=== PATIENT | female | born 1970 | race Caucasian/White ===

== ENCOUNTER → 2016-05-10 | Outpatient (CLI) | payer BC ==
[~2016-05-10] MED LIST: CALC-211 PO; CETI10TA84 PO; EPP3/2 IM; ESTR1TAB2 PO; MULTTAB58 PO
--- NOTE | 2016-05-11 12:39 | MAMMOGRAPHY REPORT ---
BILATERAL DIGITAL SCREENING MAMMOGRAM TOMOSYNTHESIS WITH CAD: 05/10/2016 CLINICAL HISTORY: Routine screening. TECHNIQUE: Breast tomosynthesis in addition to standard 2D mammography was performed. Current study was also evaluated with a Computer Aided Detection (CAD) system. COMPARISON: Comparison is made to exams dated: 05/08/2015 mammogram, 03/28/2013 mammogram, 05/10/2014 m ammogram, and 03/09/2012 mammogram - [facility]. BREAST COMPOSITION: The tissue of both breasts is heterogeneously dense, which may obscure small ma sses. FINDINGS: There are diffuse bilateral round and punctate benign-appearing microcalcifications and al so a few benign coarse calcifications in the breasts. No suspicious mass, architectural distortion or cluster of new suspicious microcalcifications is seen. IMPRESSION: ACR BI-RADS CATEGORY 1: NEGATIVE There is no mammographic evidence of malignancy. A 1 year screening mammogram is recommended. The p atient will receive written notification of the results. Approximately 10% of breast cancers are not detected with mammography. A negative mammographic repor t should not delay biopsy if a clinically suggestive mass is present. Camila Guo M.D. ay/:05/10/2016 16:34:08 Rectification Printer: Bhavya MCKENZIE(Alda)(M), [facility] letter sent: Normal 1/2 BI-RADS Code: ACR BI-RADS Category 1: Negative
== END | disposition home or self-care (01) ==
LOC: C.MAMM 08:24
PROVIDERS: ATTEND Obstetrics & Gynecology
DX: Z12.31 Encounter for screening mammogram for malignant neoplasm of breast (principal)

== ENCOUNTER → 2017-04-22 | Outpatient (CLI) | payer BC ==
[~2017-04-22] MED LIST changes: +OPTIRAY 320 IV PRN
[2017-04-22 09:53] LABS: BLOOD UREA NITROGEN 15 mg/dl (7-18); CREATININE 0.74 mg/dl (0.60-1.20)
--- NOTE | 2017-04-22 12:00 | DIAGNOSTIC IMAGING REPORT ---
ABDOMEN AND PELVIS CT WITH IV AND ORAL CONTRAST CT DOSE: 294.66 mGy.cm HISTORY: Acute generalized abdominal pain and bloating DIFFUSED ABD PAIN, EPIGASTRIC PAIN, BLOATING TECHNIQUE: Multiaxial CT images of the abdomen and pelvis were performed following the use of intravenous and oral contrast. A dose lowering technique was utilized adhering to the principles of ALARA. COMPARISON STUDY: None. FINDINGS: Lung bases are generally clear. No pneumatosis or pneumoperitoneum identified. Imaged inferior cardiac chambers are unremarkable. Liver, spleen, gallbladder, pancreas and adrenal glands are within normal limits. Low attenuating 5 mm lesion of the interpolar left kidney is too small to characterize however suggest renal cysts. External renal pelvis noted on the left. No renal calculi or hydronephrosis. Ureters and urinary bladder are within normal limits. Prior hysterectomy. No adnexal mass lesions identified. The aorta is normal in course and caliber. No bulky adenopathy. There is no bowel obstruction or focal bowel wall thickening identified. Moderate stool volume throughout the colon. Appendix is contrast-filled and appears noninflamed. Diastases recti with tiny fat filled periumbilical hernia. Soft tissues are unremarkable. Bones appear intact. No significant degenerative changes of the spine. IMPRESSION: 1. Moderate stool volume throughout the colon suggest constipation. No bowel obstruction or focal bowel wall thickening. 2. No evidence of acute appendicitis. 3. Prior hysterectomy. Electronically signed by: Wily Mora M.D. 04/22/2017 11:59 AM Dictated Date/Time: 04/22/2017 11:55 AM
== END | disposition home or self-care (01) ==
LOC: C.CTS 09:00
PROVIDERS: ATTEND Family Medicine
DX: R10.84 Generalized abdominal pain (principal); R14.0 Abdominal distension (gaseous); Z90.710 Acquired absence of both cervix and uterus

== ENCOUNTER → 2017-05-13 | Outpatient (CLI) | payer OTHER ==
[~2017-05-13] MED LIST changes: -OPTIRAY 320 IV PRN
--- NOTE | 2017-05-13 15:08 | MAMMOGRAPHY REPORT ---
BILATERAL DIGITAL SCREENING MAMMOGRAM TOMOSYNTHESIS WITH CAD: 05/13/2017 CLINICAL HISTORY: Routine screening. The patient reports occasional left medial breast tenderness fo r a few years. TECHNIQUE: Breast tomosynthesis in addition to standard 2D mammography was performed. Current study was also evaluated with a Computer Aided Detection (CAD) system. COMPARISON: Comparison is made to exams dated: 05/10/2016 mammogram, 05/08/2015 mammogram, 05/10/2014 mamm ogram, 03/28/2013 mammogram, and 03/09/2012 mammogram - [facility]. BREAST COMPOSITION: The tissue of both breasts is heterogeneously dense, which may obscure small mas ses. FINDINGS: No suspicious masses, calcifications, or areas of architectural distortion are noted in ei ther breast. There has been no significant interval change compared to prior exams. Scattered bilater al benign-appearing calcifications are not significantly changed. IMPRESSION: ACR BI-RADS CATEGORY 2: BENIGN There is no mammographic evidence of malignancy. A 1 year screening mammogram is recommended. Also r ecommend clinical follow-up for occasional left medial breast tenderness. The patient will receive w ritten notification of the results. Approximately 10% of breast cancers are not detected with mammography. A negative mammographic report should not delay biopsy if a clinically suggestive mass is present. Doreen Hannah M.D. /:05/13/2017 08:24:53 Scale Attendant: Bhavya Banda RT(R)(M), [facility] letter sent: Normal 1/2 BI-RADS Code: ACR BI-RADS Category 2: Benign
== END | disposition home or self-care (01) ==
LOC: C.MAMM 08:04
PROVIDERS: ATTEND Obstetrics & Gynecology
DX: Z12.31 Encounter for screening mammogram for malignant neoplasm of breast (principal)

== ENCOUNTER → 2017-05-24 | Outpatient (CLI) | payer OTHER | END | disposition home or self-care (01) | LOC: C.PAPS 10:22 | PROVIDERS: ATTEND Obstetrics & Gynecology | DX: Z01.419 Encounter for gynecological examination (general) (routine) without abnormal findings (principal) ==